=== PATIENT | male | born 1985 | race Caucasian/White ===

== ENCOUNTER 2019-02-25 20:11 | Emergency (ER) | payer SELFPAY ==
[2019-02-25 20:12] VITALS: BP 152/85; PULSE 71; RESP 14; TEMP 36.9; O2SAT 98; BMI 27.1
--- NOTE | 2019-02-25 20:17 | ED.RN ---
RN CALLED FOR EKG, PULLED OLD EKG FOR
--- NOTE | 2019-02-25 20:56 | EKG12_ITS ---
Test Reason : CP Blood Pressure : / mmHG Vent. Rate : 058 BPM Atrial Rate : 058 BPM P-R Int : 130 ms QRS Dur : 104 ms QT Int : 420 ms P-R-T Axes : 083 074 064 degrees QTc Int : 412 ms Sinus bradycardia Otherwise normal ECG Confirmed by RIAN DAMON, GLORIA ([id number]), metropolitan editor MANA PARIKH ([id number]) on 03/01/2019 1:36:39 PM Referred By: Confirmed By:GLORIA MODI MD
[2019-02-25 21:05] VITALS: O2SAT 96
[2019-02-25 21:07] LABS: Absolute Lymphocyte Count 2.09 X10^3/ul (0.83-4.51); Absolute Neutrophil Count 9.2 X10^3/uL (2.0-7.7); Basophil# 0.03 X10^3/uL; Basophil% 0.2 % (0-1); Eosinophil# 0.25 X10^3/uL; Hematocrit 47.1 % (40-54); Hemoglobin 16.3 g/dl (13.0-16.5); Lymphocyte # 2.09 X10^3/ul (4.0); Lymphocyte % 16.3 % (19-41); Mean Corp Hgb Conc 34.6 g/gl (32-36); Mean Corpuscular Hgb 30.6 pg (27.0-32.0); Mean Corpuscular Volume 88.4 fL (80-94); Mean Platelet Vol. 9.7 fl (6.2-12.0); Monocyte# 1.19 X10^3/uL; Monocyte% 9.3 % (0-10); Neutrophil # 9.24 X10^3/uL (2.7-7.7); POSITIVE COUNT NO; POSITIVE DIFFERENTIAL NO; POSITIVE MORPHOLOGY NO; Platelet Count 308 K/mm3 (150-450); RBC Distribution Width CV 12.5 % (11.6-14.6); RBC Distribution Width SD 40.7 fl (35.1-43.9); Red Blood Count 5.33 M/mm3 (4.6-6.2); White Blood Count 12.8 K/mm3 (4.4-11.0)
[2019-02-25] MEDS: Aspirin 81 MG TAB.CHEW 324 MG PO (21:10)
[2019-02-25 21:16] LABS: Anion Gap 4 (5-15); BUN 11 mg/dL (7-18); BUN/Creat Ratio 10.5 RATIO (10-20); Calcium,Total 9.3 mg/dL (8.5-10.1); Chloride 106 mmol/L (98-107); Creatinine, Serum 1.05 mg/dL (0.70-1.30); EST Glomerular Filtration Rate 86 mL/min (>60); Est Glom Filt Rate - Afr Amer 104 mL/min (>60); Estimated Creatinine Clearance 105.58 ml/min; Glucose 100 mg/dL (74-106); Potassium 3.6 mmol/L (3.5-5.1); Sodium Level 139 mmol/L (136-145)
--- NOTE | 2019-02-25 22:10 | RAD_ITS ---
STUDY: X-RAY CHEST REASON FOR EXAM: Male, 33 years old. Chest pain/epigastric pain TECHNIQUE: Single AP portable view of the chest. COMPARISON: None. FINDINGS: lead recoverer leads are present. The lungs are clear and expanded. There is no demonstrated pleural abnormality. Normal size heart. Normal mediastinum and carole. Normal visualized pulmonary arteries. Normal visualized aortic arch and descending thoracic aorta. Normal visualized thoracic spine. Normal visualized ribs, clavicles, and shoulders. There is no demonstrated abnormality of the visualized soft tissue structures of the upper abdomen. RAD/Chest 1 View (Portable) IMPRESSION: Normal x-ray examination of the chest. Electronically Signed: Malcolm Collado MD at 22:30 EDT , Service support ,
--- NOTE | 2019-02-25 23:49 | ED.VISSUMM ---
- ER Visit Summary Date of Service: 02/25/19 Chief Complaint: Chest pain History of Present Illness: The patient is a 33 M who presents with chest pain that began today. While he was at work. Patient states the pain is been constant. Patient describes the pain is sharp. Patient states the pain is over the left substernal area. Patient states nothing seems to make the pain worse. Patient states the pain improved slightly with drinking water. Patient admits to some diaphoresis. Patient also admits to some acid reflux. Patient denies any shortness of breath. Patient denies any nausea or vomiting. Patient is a smoker. Patient denies any other cardiac or PE risk factors. Physical Examination: Vital signs are stable. Patient is afebrile. Patient is in no acute distress. Oral mucosa is pink and moist. Neck is supple. Trachea is midline. There is no JVD noted. Heart was regular rate and rhythm. Lungs are clear and equal bilateral. Abdomen is soft. Bowel sounds are normal. There is no tenderness. There is no guarding noted. Skin is warm dry. Cranial nerves II through XII are intact. There are no focal motor or sensory deficits noted. The remaining physical exam is within normal limits. Test Results: EKG showed normal sinus rhythm with a rate of 58. There are no acute ST or T wave changes. This was unchanged compared to previous EKG dated 01/21/2002. Portable chest x-ray was obtained. There is no acute cardiopulmonary process. CBC shows slight leukocytosis of 12.8. Basic metabolic profile was normal. Troponin was normal. Emergency Department Course and Treatment: Patient was given aspirin here. Patient felt better on reevaluation. Patient has a HEART score of 2 and a LES score of 1. Patient was advised that this is low risk for acute cardiac event. Patient was given a referral to Dr. Espinoza Jones for follow-up with a primary care physician in 5 to 7 days. Patient understood and was agreeable with the plan. All questions were answered. Disposition: Discharge home Impression: Chest pain This note was generated with [employer] dictation software. It may contain incorrect words, spelling, and punctuation that were not noted in review of the chart prior to signing ED Disposition - Plan for ED Patient: Disposition: Home or Assisted Living Diagnosis: Chest pain of uncertain etiology Instructions: CHEST PAIN, Uncertain Cause Referrals: Care Physician,No Primary [Primary Care Provider] - Espinoza Jones DO [STAFF PHYSICIAN] - 5-7 Days
[2019-02-26 00:05] VITALS: BP 123/78; PULSE 68; RESP 17; O2SAT 97
--- NOTE | 2019-02-26 00:06 | ED.RN ---
PT GIVEN WRITTEN AND VERBAL DISCHARGE INSTRUCTIONS. PT VERBALIZES UNDERSTANDING AND DENIES ANY FURTHER QUESTIONS. PT IV D/C AND COVERED WITH 2X2 GAUZE AND PAPER TAPE. PT DRESSES SELF AND AMBULATES OUT OF DEPT WITH FAMILY.
== END 2019-02-26 00:07 | disposition home or self-care (01) ==
PROVIDERS: Emergency Provider Emergency Medicine
DX: R07.9 Chest pain, unspecified (principal); F17.200 Nicotine dependence, unspecified, uncomplicated
CPT/HCPCS: 36415; 71045; 80048; 84484; 85025; 93005; 99285; A4216

== ENCOUNTER 2021-12-15 14:46 | Inpatient (IN) | payer OTHER, SELFPAY ==
[2021-12-15] VITALS (8 sets, daily range): BP systolic 103–136; BP diastolic 52–83; PULSE 52–92; RESP 11–18; TEMP 36.7–36.8; O2SAT 95–99; BMI 27.4; BMI 27.1
--- NOTE | 2021-12-15 15:04 | RAD_ITS ---
STUDY: X-RAY CHEST REASON FOR EXAM: Male, 36 years old. chest pain since yesterday, smoker TECHNIQUE: AP COMPARISON: 02/25/2019 FINDINGS: Large pneumothorax in the left apex (as well as along the left lateral lung base) with compression of the left upper lung around the left hilum. No tracheal deviation. There is no demonstrated pleural abnormality. Normal size heart. Normal mediastinum and carole. Normal visualized pulmonary arteries. Normal visualized aortic arch and descending thoracic aorta. No acute bony process. There is no demonstrated abnormality of the visualized soft tissue structures of the upper abdomen. RAD/Chest 1 View (Portable) IMPRESSION: Large left pneumothorax. No tracheal deviation. Electronically Signed: Kevin Russell MD (Brooks) at 15:53 EDT ,
--- NOTE | 2021-12-15 15:04 | EKG12_ITS ---
Test Reason : CHEST PAIN Blood Pressure : / mmHG Vent. Rate : 074 BPM Atrial Rate : 074 BPM P-R Int : 124 ms QRS Dur : 096 ms QT Int : 386 ms P-R-T Axes : 079 075 067 degrees QTc Int : 428 ms Normal sinus rhythm Right atrial enlargement Borderline ECG Confirmed by RIAN DAMON, GLORIA ([id number]), editor greeting card MANA PARIKH ([id number]) on 12/18/2021 9:24:00 AM Referred By: CHIVO Confirmed By:GLORIA MODI MD
--- NOTE | 2021-12-15 15:06 | EDS_ITS ---
HPI History of Present Illness Chief Complaint: Chest Pain Informant: patient Onset/Context/Timing Onset: Yesterday Activity at onset: gradual Timing: Waxes and wanes Quality: Positive for Pressure and Sharp Location: Left Parasternal Current Severity: Mild Maximum Severity: Moderate Narrative Narrative: Patient present secondary left-sided chest pain with mild shortness of breath. Patient states he awoke with symptoms yesterday. Has had similar episodes in the past and in high school was diagnosed with pericarditis. He states typically he will take some Aleve and it goes away in a few hours. This particular episode lasted all day yesterday. It is improved today but not completely resolved. He believes it is slightly better when he leans forward but was able to lay down to sleep last night without difficulty. No fever or chills. Prior Similar Symptoms: Yes PFSH PFSH Medical History Pericarditis Home Medications NK 02/25/19 [History Last Taken Unknown] Allergy/AdvReac Type Severity Reaction Status Date / Time No Known Allergies Allergy Verified 12/15/21 14:47 Family History (Updated 12/15/21 @ 20:[address] Giovani Thomson MD) Other Diabetes Hypertension Social History Smoking Status: Current every day smoker tobacco type: cigarettes ROS ROS ED Constitutional Constitutional ED: Denies chills or fever(s) Eyes Eyes: Denies change in vision ENT ENT ED: Denies sore throat Cardiovascular Cardiovascular: Reports chest pain Respiratory/Chest Respiratory/Chest: Reports dyspnea; Denies cough Gastrointestinal Gastrointestinal: Denies abdominal pain, diarrhea, nausea or vomiting Genitourinary Genitourinary ED: Denies dysuria Musculoskeletal Musculoskeletal: Denies back pain or neck pain Integumentary Denies rash Neurologic Neurologic: Denies headache(s) or weakness Allergic/Immunologic Allergic/Immunologic ED: Denies urticaria EXAM Physical Exam Const Vital Signs: 12/15/21 14:48 12/15/21 14:52 12/15/21 16:11 Temperature 98.3 F Temperature Source Temporal Pulse Rate 92 69 Respiratory Rate 16 17 Respiratory Effort Normal Blood Pressure 136/83 H 123/75 H Blood Pressure Mean 100 91 Pulse Ox 95 96 Oxygen Delivery Method Room Air Nasal Cannula Oxygen Flow Rate (L/min) 4 12/15/21 17:42 12/15/21 18:29 12/15/21 19:30 Temperature Temperature Source Pulse Rate 76 52 L 58 L Respiratory Rate 11 L 11 L 16 Respiratory Effort Blood Pressure 129/75 H 103/52 L 119/76 Blood Pressure Mean 93 69 90 Pulse Ox 99 99 98 Oxygen Delivery Method Nasal Cannula Nasal Cannula Room Air Oxygen Flow Rate (L/min) 2 2 Positive well nourished and well developed General Appearance ED: well developed HEENT normocephalic and atraumatic Eyes PERRL and EOMs intact bilaterally Neck supple Chest Wall inspection of chest normal and palpation of chest normal Resp normal respiratory effort Effort and Inspection: respiratory distress Cardio regular rate and regular rhythm Rate: other Other Details: No appreciable rub noted on auscultation. GI normal to inspection, nondistended, normoactive bowel sounds and soft to palpation Extremity normal to inspection Neuro oriented x3 Sensorium / Orientation: awake and alert Psych mental status grossly normal Skin no rashes or lesions noted MDM MDM MDM Narrative Medical decision making narrative: EKG, chest x-ray, lab work obtained. Lab Data Attestation: I reviewed the patient's lab results. Labs: Laboratory Results - last 24 hr 12/15/21 12/15/21 12/15/21 15:45 15:45 15:45 WBC 9.8 RBC 5.73 Hgb 17.4 H Hct 51.2 MCV 89.4 MCH 30.4 MCHC 34.0 RDW Std Deviation 40.7 RDW Coeff of Arpan 12.3 Plt Count 362 MPV 8.8 Immature Gran % (Auto) 0.200 Neut % (Auto) 58.2 Lymph % (Auto) 27.4 Logan % (Auto) 9.0 Eos % (Auto) 4.4 Baso % (Auto) 0.8 Absolute Neuts (auto) 5.7 Absolute Lymphs (auto) 2.67 Nucleated RBC % 0 ESR 10 D-Dimer Quant (PE/DVT) < 0.27 L Sodium 139 Potassium 4.2 Chloride 110 H Carbon Dioxide 26.0 Anion Gap 3 L BUN 11 Creatinine 0.93 Estim Creat Clear Calc 115.83 Est GFR (MDRD) Af Amer 117 Est GFR (MDRD) Non-Af 97 BUN/Creatinine Ratio 11.8 Glucose 100 Calcium 9.1 Troponin I High Sens < 3 L C-React Prot Ext Range < 2.90 Radiography Chest X-Ray - ED: 1 View, Read by ED Physician and - (Left-sided pneumothorax) Diagnostic Testing: Clinical Impression(s) from Imaging Studies Chest X-Ray 12/15/21 15:04 IMPRESSION: Large left pneumothorax. No tracheal deviation. Electronically Signed: Kevin Russell MD (Brooks) at 15:53 EDT , Chest X-Ray 12/15/21 17:35 IMPRESSION: Left chest tube. Slight residual left apical pneumothorax. Electronically Signed: Kevin Russell MD (Brooks) at 18:02 EDT , EKG Initial EKG: Attestation: I personally reviewed and interpreted this EKG as follows: Interpretation: Sinus Rhythm (Sinus at 74 with no acute ischemia.) Treatment and Re-Evaluation Narrative: I was notified by director of radiology that they believe there was a left- sided pneumothorax. I immediately went and reviewed the x-ray. He does have a rather large left-sided pneumothorax. Mediastinum is midline. He was placed on nasal cannula oxygen. I did discuss chest tube placement with the patient. He gives consent. In the meantime lab work returns and is unremarkable. Patient is given 4 of morphine and 4 of Zofran. Patient is prepped and draped. Pigtail catheter was placed in the left chest without difficulty. This is hooked up to suction. Repeat chest x-ray shows nearly full reexpansion of the left lung. Patient's O2 sat is 98 to 100%. I spoke with pulmonary who will follow along with the patient to manage the chest tube. I will speak with hospitalist regarding admission. Discharge Plan Dx/Rx/DC Orders Clinical Impression: Spontaneous pneumothorax Disposition Disposition: Acute Care Hospital [facility] Discharge Date/Time: 12/15/21 20:04
[2021-12-15 15:55] LABS: Absolute Lymphocyte Count 2.67 X10^3/uL (0.83-4.51); Absolute Neutrophil Count 5.7 X10^3/uL (2.0-7.7); Basophil# 0.08 X10^3/uL; Basophil% 0.8 % (0-1); Eosinophil# 0.43 X10^3/uL; Eosinophils% 4.4 % (0-5); Hematocrit 51.2 % (40-54); Hemoglobin 17.4 g/dL (13.0-16.5); Lymphocyte # 2.67 X10^3/ul (0.83-4.51); Lymphocyte % 27.4 % (19-41); Mean Corpuscular Hgb 30.4 pg (27.0-32.0); Mean Corpuscular Volume 89.4 fL (80-94); Mean Platelet Vol. 8.8 fl (6.2-12.0); Monocyte# 0.88 X10^3/uL; NRBC Flagged by Analyzer 0 % (0-5); Neutrophil # 5.68 X10^3/uL (2.7-7.7); Neutrophil % 58.2 % (47-70); Platelet Count 362 K/mm3 (150-450); RBC Distribution Width CV 12.3 % (11.6-14.6); RBC Distribution Width SD 40.7 fl (35.1-43.9); Red Blood Count 5.73 M/mm3 (4.6-6.2); White Blood Count 9.8 K/mm3 (4.4-11.0)
[2021-12-15] MEDS: Morphine 4 MG/ML Syringe IV (16:13)
[2021-12-15] MEDS: Ondansetron 4 MG/2 ML Vial IV (16:13)
[2021-12-15 16:17] LABS: Anion Gap 3 (5-15); BUN 11 mg/dL (7-18); BUN/Creat Ratio 11.8 RATIO (10-20); CRP < 2.90 mg/L (0.0-3.0); Calcium,Total 9.1 mg/dL (8.5-10.1); Chloride 110 mmol/L (98-107); Creatinine, Serum 0.93 mg/dL (0.70-1.30); EST Glomerular Filtration Rate 97 mL/min (>60); Est Glom Filt Rate - Afr Amer 117 mL/min (>60); Estimated Creatinine Clearance 115.83 ml/min; Glucose 100 mg/dL (74-106); Potassium 4.2 mmol/L (3.5-5.1); Sodium Level 139 mmol/L (136-145); Troponin-I HS < 3 pg/mL (3.0-78.0)
[2021-12-15 16:21] LABS: D-Dimer Quantitative (DVT/PE) < 0.27 FEU/ug/m (0.27-0.49); Erythrocyte Sedimentation Rate 10 mm/hr (0-20)
--- NOTE | 2021-12-15 17:24 | ED.RN ---
1724 CHEST TUBE PROCEDURE BY MD SCOTT, PRE PROCEDURAL VS ARE FOLLOWS 128/87 68HR 98% 4L 11RR. POST PROCEDURAL 129/75 60HR 100% 2L 11RR
--- NOTE | 2021-12-15 17:35 | RAD_ITS ---
STUDY: X-RAY CHEST REASON FOR EXAM: Male, 36 years old. Chest tube placement TECHNIQUE: AP COMPARISON: Earlier today FINDINGS: Left chest tube is seen along the lateral left upper lung field. Near complete reexpansion of the left lung. Slight left apical pneumothorax with pleural separation measuring 3.5 mm. Normal size heart. Normal mediastinum and carole. Normal visualized pulmonary arteries. Normal visualized aortic arch and descending thoracic aorta. Normal visualized thoracic spine. Normal visualized ribs, clavicles, and shoulders. There is no demonstrated abnormality of the visualized soft tissue structures of the upper abdomen. RAD/Chest 1 View (Portable) IMPRESSION: Left chest tube. Slight residual left apical pneumothorax. Electronically Signed: Kevin Russell MD (Brooks) at 18:02 EDT ,
--- NOTE | 2021-12-15 19:04 | CM.ED ---
SW Note Referral Source: Case Find Referral Reason: No Primary Care Physician (PCP) and no insurance SW reviewed chart and noted that patient has no PCP and no insurance SW provided patient with list of [facility] and [facility] Physician List for reference as well as financial aide packet. Financial aide packet includes [place] Medicaid application an also information about [facility]. No other issues or concerns voiced at this time. SW remains available for any additional needs. Plan: Provided patient with PCP information Tova DILLON
--- NOTE | 2021-12-15 20:25 | HP.PCM.HOS_ITS ---
HPI - General General Date of Admission: 12/15/21 HPI Narrative ARNOLD MEDELLIN, is a 36 M who presents to the hospital with chest pain and shortness of breath. He says that he woke up with the symptoms yesterday but thought that it was just his typical chest pain he says he has had when he had an episode of pericarditis in high school he will sometimes take Aleve and will go away however this episode did not. He presented to the hospital and chest x- ray demonstrated a left pneumothorax. This has resolved with placement of a chest tube. Denies any trauma to his chest. [facility] Medical History Pericarditis Home Medications NK 02/25/19 [History Last Taken Unknown] Allergy/AdvReac Type Severity Reaction Status Date / Time No Known Allergies Allergy Verified 12/15/21 14:47 Family History (Updated 12/15/21 @ 20:[address] Giovani Thomson MD) Other Diabetes Hypertension no surgical history Social History Smoking Status: Current every day smoker tobacco type: cigarettes ROS Constitutional Constitutional: Denies chills, fatigue, fever(s) or malaise Eyes Eyes: Denies blurry vision ENT HEENT: Denies headache(s) or nasal discharge Cardiovascular Cardiovascular: Reports chest pain; Denies dyspnea on exertion or syncope Respiratory/Chest Respiratory/Chest: Reports shortness of breath at rest; Denies cough or shortness of breath with exertion Gastrointestinal Gastrointestinal: Denies constipation, diarrhea, nausea or vomiting Genitourinary Genitourinary: Denies dysuria Neurologic Neurologic: Denies focal weakness, numbness or tremor(s) Psychiatric Psychiatric: Denies anxiety or depression Vital Signs Vital Signs Vital Signs: 12/15/21 14:48 12/15/21 14:52 12/15/21 16:11 Temperature 98.3 F Temperature Source Temporal Pulse Rate 92 69 Respiratory Rate 16 17 Respiratory Effort Normal Blood Pressure 136/83 H 123/75 H Blood Pressure Mean 100 91 Blood Pressure Source Blood Pressure Position Blood Pressure Location Pulse Ox 95 96 Oxygen Delivery Method Room Air Nasal Cannula Oxygen Flow Rate (L/min) 4 12/15/21 17:42 12/15/21 18:29 12/15/21 19:30 Temperature Temperature Source Pulse Rate 76 52 L 58 L Respiratory Rate 11 L 11 L 16 Respiratory Effort Blood Pressure 129/75 H 103/52 L 119/76 Blood Pressure Mean 93 69 90 Blood Pressure Source Blood Pressure Position Blood Pressure Location Pulse Ox 99 99 98 Oxygen Delivery Method Nasal Cannula Nasal Cannula Room Air Oxygen Flow Rate (L/min) 2 2 12/15/21 19:34 12/15/21 20:23 Temperature 98.3 F 98.1 F Temperature Source Oral Oral Pulse Rate 67 63 Respiratory Rate 18 12 Respiratory Effort Blood Pressure 119/76 113/69 Blood Pressure Mean 90 83 Blood Pressure Source Monitor Blood Pressure Position Sitting Blood Pressure Location Right Arm Pulse Ox 99 99 Oxygen Delivery Method Nasal Cannula Nasal Cannula Oxygen Flow Rate (L/min) 2 3 Weight Weight: 194 lb 10.691 oz Body Mass Index (BMI) 27.1 Physical Exam Const alert and oriented x3 General Appearance: cooperative HEENT normocephalic and moist oral mucous membranes Eyes PERRL, EOMs intact bilaterally and conjunctivae normal Neck supple and no JVD Resp normal respiratory effort, no retractions, no use of accessory muscles and clear to auscultation bilaterally Auscultation: Negative for crackles, rales, rhonchi or wheezes Cardio regular rate, regular rhythm, S1 normal heart sound, S2 normal heart sound and no murmurs GI soft to palpation, non-tender and non-distended; Negative for hepatosplenomegaly Extremity no clubbing, cyanosis or edema Skin no rashes or lesions noted Neuro no focal motor deficits and no sensory deficits noted Psych affect normal Appearance: appropriate Results Lab / Micro Data Result Diagrams: 12/15/21 15:45 12/15/21 15:45 Labs: Laboratory Results - last 24 hr 12/15/21 15:45: WBC 9.8, RBC 5.73, Hgb 17.4 H, Hct 51.2, MCV 89.4, MCH 30.4, MCHC 34.0, RDW Std Deviation 40.7, RDW Coeff of Arpan 12.3, Plt Count 362, MPV 8.8, Immature Gran % (Auto) 0.200, Neut % (Auto) 58.2, Lymph % (Auto) 27.4, O[place]e % (Auto) 9.0, Eos % (Auto) 4.4, Baso % (Auto) 0.8, Absolute Neuts (auto) 5.7, Absolute Lymphs (auto) 2.67, Nucleated RBC % 0, ESR 10 12/15/21 15:45: D-Dimer Quant (PE/DVT) < 0.27 L 12/15/21 15:45: Sodium 139, Potassium 4.2, Chloride 110 H, Carbon Dioxide 26.0, Anion Gap 3 L, BUN 11, Creatinine 0.93, Estim Creat Clear Calc 115.83, Est GFR (MDRD) Af Amer 117, Est GFR (MDRD) Non-Af 97, BUN/Creatinine Ratio 11.8, Glucose 100, Calcium 9.1, Troponin I High Sens < 3 L, C-React Prot Ext Range < 2.90 Radiology Impression Chest X-Ray 12/15/21 15:04 IMPRESSION: Large left pneumothorax. No tracheal deviation. Electronically Signed: Kevin Russell MD (Brooks) at 15:53 EDT , Chest X-Ray 12/15/21 17:35 IMPRESSION: Left chest tube. Slight residual left apical pneumothorax. Electronically Signed: Kevin Russell MD (Brooks) at 18:02 EDT , Assessment & Plan Assessment/Plan (1) Spontaneous pneumothorax: PLAN: 1. Spontaneous pneumothorax on the left ? Pneumothorax is resolved with placement of chest tube ? Consult pulmonology for management ? Continue with low intermittent wall suction ? He denies a family history pneumothoraces DVT: Ambulation Charges/Coding Visit Charges Inpatient E&M: 49661 Init Hosp L2
[2021-12-16 04:02] VITALS: BP 102/61; PULSE 57; RESP 18; TEMP 36.4; O2SAT 98
--- NOTE | 2021-12-16 05:56 | EX.PCM.CONCC ---
Assessment & Plan Assessment/Plan (1) Spontaneous pneumothorax: PLAN: RECOMMENDATIONS: 1. Obtain repeat chest x-ray this morning. 2. If no pneumothorax was noted on chest imaging this morning, place chest tube to waterseal. 3. If the chest tube was placed to waterseal, a follow-up chest x-ray will be obtained with the possibility of chest tube removal. IMPRESSIONS: 1. Spontaneous pneumothorax The patient initially presented to the hospital with chest discomfort and shortness of breath. He has no known history of any primary pneumothoraces, nor has he ever been diagnosed with any pulmonary parenchymal lung abnormality. He does have a smoking history. It is certainly plausible that the patient may have some small subpleural blebs not evident on plain film chest x-ray which may have led to his pneumothorax in the setting of a coughing fit. Nevertheless, the patient's pneumothorax has nearly completely resolved status post pigtail chest tube placement. Recommend obtaining a follow-up chest x-ray this morning. If there is no significant pneumothorax, the patient's chest tube will be placed to waterseal in preparation for potential removal. 2. Chronic tobacco dependency I personally spent 3 minutes discussing the deleterious effects of continued tobacco use with the patient, including modalities which could utilize to achieve a smoke-free lifestyle. Nicotine replacement therapy can be utilized while the patient is admitted to the hospital. This note was generated with [employer] dictation software. It may contain incorrect words, spelling, and punctuation that were not noted in checking the note before signing. HPI Consult Data Date of Consult: 12/16/21 HPI Narrative Reason for Consultation: Spontaneous pneumothorax HPI Narrative: The patient is a 36-year-old male, with a history as outlined below, who presented to the emergency department on December 15 with shortness of breath and left-sided chest discomfort after awakening from sleep. The patient does have an approximate [id number] smoking history and continues to smoke 1 pack of cigarettes per day. He denies any prior history of a pneumothorax. The patient denies any recent trauma. He has never been diagnosed with any parenchymal lung disease. The patient did report experiencing a coughing fit when he awoke from sleep yesterday as well. On presentation to the emergency department, the patient was noted to be afebrile and hemodynamically stable. Initial CBC with differential was unremarkable. D-dimer was negative. Chemistry profile was unremarkable. Initial chest x-ray demonstrated a large left-sided pneumothorax. A pigtail catheter was placed in the emergency department with improvement in the patient's pneumothorax. He was subsequently admitted to the medical surgical floor for further management. [facility] Medical History Pericarditis Home Medications NK 02/25/19 [History Last Taken Unknown] Allergy/AdvReac Type Severity Reaction Status Date / Time No Known Allergies Allergy Verified 12/15/21 14:47 Family History (Updated 12/15/21 @ 20:[address] Giovani Thomson MD) Other Diabetes Hypertension Surgical History no surgical history Social History Smoking Status: Current every day smoker tobacco type: cigarettes ROS Constitutional Constitutional: Denies chills, fatigue or fever(s) Eyes Eyes: Denies blurry vision or change in vision ENT HEENT: Denies dizziness, headache(s) or hoarseness Cardiovascular Cardiovascular: Reports chest pain and dyspnea Respiratory/Chest Respiratory/Chest: Reports dyspnea Gastrointestinal Gastrointestinal: Denies abdominal pain, diarrhea, nausea or vomiting Genitourinary Genitourinary: Denies difficulty urinating Musculoskeletal Musculoskeletal: Denies arthralgias, back pain or joint pain Integumentary Integumentary: Denies lesions, rash or skin ulcer Neurologic Neurologic: Denies abnormal gait or abnormal speech Psychiatric Psychiatric: Denies anxiety, depression or hallucinations Endocrine Endocrinology: Denies fatigue, polydipsia or polyuria Hematologic/Lymphatic Hematologic/Lymphatic: Denies easy bleeding or easy bruising Physical Exam Const alert, oriented x3 and no apparent distress General Appearance: cooperative HEENT normocephalic, head/scalp atraumatic and moist oral mucous membranes Eyes PERRL, EOMs intact bilaterally and conjunctivae normal Neck supple General: trachea midline Chest Chest Narrative: No air leak noted in the Pleur-evac. Chest: chest tube Resp normal respiratory effort Auscultation: Negative for rales, rhonchi or wheezes Cardio S1 normal heart sound and S2 normal heart sound Rate: bradycardia GI normal to inspection, nondistended, normoactive bowel sounds Extremity no clubbing, cyanosis or edema Skin no rashes or lesions noted Neuro CN's II-XII intact bilaterally, moves all extremities and no focal motor deficits Psych cooperative and affect normal Lab / Micro Data Result Diagrams: 12/16/21 05:25 12/16/21 05:25 Labs: Laboratory Results - last 24 hr 12/15/21 15:45: WBC 9.8, RBC 5.73, Hgb 17.4 H, Hct 51.2, MCV 89.4, MCH 30.4, MCHC 34.0, RDW Std Deviation 40.7, RDW Coeff of Arpan 12.3, Plt Count 362, MPV 8.8, Immature Gran % (Auto) 0.200, Neut % (Auto) 58.2, Lymph % (Auto) 27.4, [place] % (Auto) 9.0, Eos % (Auto) 4.4, Baso % (Auto) 0.8, Absolute Neuts (auto) 5.7, Absolute Lymphs (auto) 2.67, Nucleated RBC % 0, ESR 10 12/15/21 15:45: D-Dimer Quant (PE/DVT) < 0.27 L 12/15/21 15:45: Sodium 139, Potassium 4.2, Chloride 110 H, Carbon Dioxide 26.0, Anion Gap 3 L, BUN 11, Creatinine 0.93, Estim Creat Clear Calc 115.83, Est GFR (MDRD) Af Amer 117, Est GFR (MDRD) Non-Af 97, BUN/Creatinine Ratio 11.8, Glucose 100, Calcium 9.1, Troponin I High Sens < 3 L, C-React Prot Ext Range < 2.90 Radiology Impression Chest X-Ray 12/15/21 15:04 IMPRESSION: Large left pneumothorax. No tracheal deviation. Electronically Signed: Kevin Russell MD (Brooks) at 15:53 EDT , Chest X-Ray 12/15/21 17:35 IMPRESSION: Left chest tube. Slight residual left apical pneumothorax. Electronically Signed: Kevin Russell MD (Brooks) at 18:02 EDT , Charges/Coding Visit Charges Inpatient E&M: 77516 Init Hosp L3 Behavior Interventions Behavior Intervention: 74241 Smoking Cessation 3-10 min
--- NOTE | 2021-12-16 06:10 | RAD_ITS ---
STUDY: X-RAY CHEST REASON FOR EXAM: Male, 36 years old. PTX follow up TECHNIQUE: 2 frontal views of the chest. COMPARISON: Chest radiographs of 12/15/2021 and 02/25/2019.. FINDINGS: Small-caliber left chest tube remains in place along the lateral aspect of the left midlung. The previously noted left-sided pneumothorax is no longer visualized, but there could be a tiny residual pneumothorax at the apex, which is obscured by overlying rib shadows. The lungs are clear. No pleural effusion. Normal size heart. Normal mediastinum and carole. Normal visualized pulmonary arteries. Normal visualized aortic arch and descending thoracic aorta. Normal visualized thoracic spine. Normal visualized ribs, clavicles, and shoulders. There is no demonstrated abnormality of the visualized soft tissue structures of the upper abdomen. RAD/Chest 1 View (Portable) IMPRESSION: Left chest tube remain in place. Left-sided pneumothorax is no longer visualized. Electronically Signed: Smith Logan MD at 7:20 EDT ,
[2021-12-16 06:16] LABS: Absolute Lymphocyte Count 3.05 X10^3/uL (0.83-4.51); Absolute Neutrophil Count 6.2 X10^3/uL (2.0-7.7); Basophil# 0.08 X10^3/uL; Basophil% 0.7 % (0-1); Eosinophil# 0.57 X10^3/uL; Eosinophils% 5.2 % (0-5); Hematocrit 50.3 % (40-54); Hemoglobin 16.4 g/dL (13.0-16.5); Lymphocyte # 3.05 X10^3/ul (0.83-4.51); Lymphocyte % 27.9 % (19-41); Mean Corp Hgb Conc 32.6 g/dL (32-36); Mean Platelet Vol. 9.4 fl (6.2-12.0); Monocyte# 1.02 X10^3/uL; Monocyte% 9.3 % (0-10); NRBC Flagged by Analyzer 0 % (0-5); Neutrophil # 6.19 X10^3/uL (2.7-7.7); Neutrophil % 56.7 % (47-70); Platelet Count 335 K/mm3 (150-450); RBC Distribution Width CV 12.2 % (11.6-14.6); RBC Distribution Width SD 41.7 fl (35.1-43.9); Red Blood Count 5.47 M/mm3 (4.6-6.2); White Blood Count 10.9 K/mm3 (4.4-11.0)
[2021-12-16 06:46] LABS: Anion Gap 3 (5-15); BUN 11 mg/dL (7-18); BUN/Creat Ratio 12.1 RATIO (10-20); Calcium,Total 8.7 mg/dL (8.5-10.1); Chloride 107 mmol/L (98-107); Creatinine, Serum 0.91 mg/dL (0.70-1.30); EST Glomerular Filtration Rate 100 mL/min (>60); Est Glom Filt Rate - Afr Amer 121 mL/min (>60); Estimated Creatinine Clearance 118.37 ml/min; Glucose 85 mg/dL (74-106); Sodium Level 139 mmol/L (136-145)
--- NOTE | 2021-12-16 06:58 | NURSING ---
per Dr Bradshaw. He changed the chest tube to a water seal. If pt reports chest pain, hook chest tube back up to suction.
--- NOTE | 2021-12-16 07:25 | PCM.PN.HOSP ---
Subjective Subjective Patient is a 36-year-old gentleman who presented with left-sided chest pain and shortness of breath of few days duration. Imaging studies obtained in the ED did reveal Large pneumothorax in the left apex (as well as along the left lateral lung base) with compression of the left upper lung around the left hilum. Chest tube was placed patient admitted to regular nursing floor for further management Objective Data Objective Data Vital Signs: Vital Signs Temp Pulse Resp BP Pulse Ox 97.6 F L 57 L 18 102/61 98 12/16/21 04:02 12/16/21 04:02 12/16/21 04:02 12/16/21 04:02 12/16/21 04:02 Oxygen Flow Rate (L/min) 3 Oxygen Delivery Method Room Air Weight: 88.3 kg Body Mass Index (BMI) 27.1 Lab / Micro Data Result Diagrams: 12/16/21 05:25 12/16/21 05:25 Labs: Laboratory Results - last 24 hr 12/15/21 15:45: WBC 9.8, RBC 5.73, Hgb 17.4 H, Hct 51.2, MCV 89.4, MCH 30.4, MCHC 34.0, RDW Std Deviation 40.7, RDW Coeff of Arpan 12.3, Plt Count 362, MPV 8.8, Immature Gran % (Auto) 0.200, Neut % (Auto) 58.2, Lymph % (Auto) 27.4, [place] % (Auto) 9.0, Eos % (Auto) 4.4, Baso % (Auto) 0.8, Absolute Neuts (auto) 5.7, Absolute Lymphs (auto) 2.67, Nucleated RBC % 0, ESR 10 12/15/21 15:45: D-Dimer Quant (PE/DVT) < 0.27 L 12/15/21 15:45: Sodium 139, Potassium 4.2, Chloride 110 H, Carbon Dioxide 26.0, Anion Gap 3 L, BUN 11, Creatinine 0.93, Estim Creat Clear Calc 115.83, Est GFR (MDRD) Af Amer 117, Est GFR (MDRD) Non-Af 97, BUN/Creatinine Ratio 11.8, Glucose 100, Calcium 9.1, Troponin I High Sens < 3 L, C-React Prot Ext Range < 2.90 12/16/21 05:25: WBC 10.9, RBC 5.47, Hgb 16.4, Hct 50.3, MCV 92.0, MCH 30.0, MCHC 32.6, RDW Std Deviation 41.7, RDW Coeff of Arpan 12.2, Plt Count 335, MPV 9.4, Immature Gran % (Auto) 0.200, Neut % (Auto) 56.7, Lymph % (Auto) 27.9, [place] % (Auto) 9.3, Eos % (Auto) 5.2 H, Baso % (Auto) 0.7, Absolute Neuts (auto) 6.2, Absolute Lymphs (auto) 3.05, Nucleated RBC % 0 12/16/21 05:25: Sodium 139, Potassium 5.0, Chloride 107, Carbon Dioxide 29.0, Anion Gap 3 L, BUN 11, Creatinine 0.91, Estim Creat Clear Calc 118.37, Est GFR (MDRD) Af Amer 121, Est GFR (MDRD) Non-Af 100, BUN/Creatinine Ratio 12.1, Glucose 85, Calcium 8.7 Radiography Diagnostic Testing: Radiology Impression Chest X-Ray 12/15/21 15:04 IMPRESSION: Large left pneumothorax. No tracheal deviation. Electronically Signed: Kevin Russell MD (Brooks) at 15:53 EDT , Chest X-Ray 12/15/21 17:35 IMPRESSION: Left chest tube. Slight residual left apical pneumothorax. Electronically Signed: Kevin Russell MD (Brooks) at 18:02 EDT , Chest X-Ray 12/16/21 06:10 IMPRESSION: Left chest tube remain in place. Left-sided pneumothorax is no longer visualized. Electronically Signed: Smith Logan MD at 7:20 EDT , Physical Exam Narrative GENERAL: cooperative HEENT: Atraumatic; EYES; Anicteric, Normal Conjunctiva NECK; supple, normal thyroid, RESPIRATORY: Diminished to auscultation CARDIOVASCULAR: Regular S1 S2, GI: soft, normoactive bowel sounds, : No Renal angle tenderness; EXTREMITIES: No edema, no clubbing, MUSCULOSKELETAL: no muscle wasting NEURO: Awake; no lateralizing signs. SKIN: No Rash PSYCH; Flat affect Assessment & Plan Assessment/Plan (1) Spontaneous pneumothorax: PLAN: Patient is a 36-year-old gentleman who presented with left-sided chest pain and shortness of breath of few days duration. Imaging studies obtained in the ED did reveal Large pneumothorax in the left apex (as well as along the left lateral lung base) with compression of the left upper lung around the left hilum. Chest tube was placed patient admitted to regular nursing floor for further management 1. Spontaneous pneumothorax on the left - Imaging studies obtained in the ED did reveal Large pneumothorax in the left apex (as well as along the left lateral lung base) with compression of the left upper lung around the left hilum. Chest tube was placed patient admitted to regular nursing floor for further management. Imaging studies repeated on the morning of 10/18/2021 demonstrated resolution of the pneumothorax. Pulmonary medicine on consult and recommendation is for patient chest tube to be placed to [facility] 2. Tobacco dependence - Counseled on cessation, offered nicotine patch for tobacco cravings 3. DVT prophylaxis ? Low risk, did encourage early ambulation Charges/Coding Visit Charges Inpatient E&M: 99100 Subs Hosp L2
--- NOTE | 2021-12-16 07:45 | RAD_ITS ---
STUDY: X-RAY CHEST REASON FOR EXAM: Male, 36 years old. CHEST PAIN fu PTX- chest tube to water seal TECHNIQUE: XR Chest 1 View COMPARISON: Study done earlier today. FINDINGS: There is a small left apical pneumothorax which is less than 5% in size. Small bore left chest tube in place. Normal size heart. Normal mediastinum and carole. Normal visualized pulmonary arteries. Normal visualized aortic arch and descending thoracic aorta. Normal visualized thoracic spine. Normal visualized ribs, clavicles, and shoulders. There is no demonstrated abnormality of the visualized soft tissue structures of the upper abdomen. RAD/Chest 1 View (Portable) IMPRESSION: There is a small left apical pneumothorax which is less than 5% in size. Small bore left chest tube in place Electronically Signed: Jacobo Bob MD at 8:43 EDT ,
[2021-12-16 09:29] VITALS: BP 108/76; PULSE 80; RESP 18; TEMP 36.7; O2SAT 97
--- NOTE | 2021-12-16 12:00 | RAD_ITS ---
STUDY: X-RAY CHEST REASON FOR EXAM: Male, 36 years old. PTX follow up TECHNIQUE: Single AP portable view of the chest. COMPARISON: 12/16/2021 FINDINGS: The lungs are clear and expanded. There is no demonstrated pleural abnormality. Normal size heart. Normal mediastinum and carole. Normal visualized pulmonary arteries. Normal visualized aortic arch and descending thoracic aorta. Normal visualized thoracic spine. Normal visualized ribs, clavicles, and shoulders. There is no demonstrated abnormality of the visualized soft tissue structures of the upper abdomen. RAD/Chest 1 View (Portable) IMPRESSION: No evidence of acute cardiopulmonary process. No evidence of residual pneumothorax. Electronically Signed: Jerel Bedoya DO at 12:14 EDT ,
[2021-12-16 14:57] VITALS: BP 112/80; PULSE 80; RESP 18; TEMP 36.4; O2SAT 97
--- NOTE | 2021-12-16 15:07 | PCM.DC.SUM ---
Providers Date of Admission: 12/15/21 Primary Care Physician: Saima Primary Care Phys Consultations 12/15/21 20:27 Consult: Anthropology Professor / Pulmonary Medicine Routine Consulting Provider: Pulmonary Medicine ashley Lozano Reason for Consult: Left pneumothorax EMERGENT Consult: No MD Notified: Yes Date Notified: 12/15/21 Time Notified: 19:32 Method of Notification: Verbal Reason For Visit: SPONTANEOUS PNEUMO Diagnosis Discharge Diagnosis (1) Spontaneous pneumothorax: Status: Acute Code(s): J93.83 - Other pneumothorax Medications at Discharge Home Medications NK 02/25/19 Hospital Course Summary of Care Provided Minutes Spent on Discharge: 35 Hospital Course: Patient is a 36-year-old gentleman who presented with left-sided chest pain and shortness of breath of few days duration. Imaging studies obtained in the ED did reveal Large pneumothorax in the left apex (as well as along the left lateral lung base) with compression of the left upper lung around the left hilum. Chest tube was placed patient admitted to regular nursing floor for further management 1. Spontaneous pneumothorax on the left - Imaging studies obtained in the ED did reveal Large pneumothorax in the left apex (as well as along the left lateral lung base) with compression of the left upper lung around the left hilum. Chest tube was placed patient admitted to regular nursing floor for further management. Imaging studies repeated on the morning of 10/18/2021 demonstrated resolution of the pneumothorax. Pulmonary medicine on consult and recommendation is for patient chest tube to be placed to waterseal - Repeat CXR showed complete resolution 2. Tobacco dependence - Counseled on cessation, offered nicotine patch for tobacco cravings 3. DVT prophylaxis ? Low risk, did encourage early ambulation Physical Exam Narrative GENERAL: cooperative HEENT: Atraumatic; EYES; Anicteric, Normal Conjunctiva NECK; supple, normal thyroid, RESPIRATORY: Diminished to auscultation CARDIOVASCULAR: Regular S1 S2, GI: soft, normoactive bowel sounds, : No Renal angle tenderness; EXTREMITIES: No edema, no clubbing, MUSCULOSKELETAL: no muscle wasting NEURO: Awake; no lateralizing signs. SKIN: No Rash PSYCH; Flat affect Weight / BMI Weight Weight: 88.3 kg Body Mass Index (BMI) 27.1 ABG / Lab / Microbiology Data Result Diagrams: 12/16/21 05:25 12/16/21 05:25 Laboratory: Laboratory Results - last 24 hr 12/15/21 15:45: WBC 9.8, RBC 5.73, Hgb 17.4 H, Hct 51.2, MCV 89.4, MCH 30.4, MCHC 34.0, RDW Std Deviation 40.7, RDW Coeff of Arpan 12.3, Plt Count 362, MPV 8.8, Immature Gran % (Auto) 0.200, Neut % (Auto) 58.2, Lymph % (Auto) 27.4, [place] % (Auto) 9.0, Eos % (Auto) 4.4, Baso % (Auto) 0.8, Absolute Neuts (auto) 5.7, Absolute Lymphs (auto) 2.67, Nucleated RBC % 0, ESR 10 12/15/21 15:45: D-Dimer Quant (PE/DVT) < 0.27 L 12/15/21 15:45: Sodium 139, Potassium 4.2, Chloride 110 H, Carbon Dioxide 26.0, Anion Gap 3 L, BUN 11, Creatinine 0.93, Estim Creat Clear Calc 115.83, Est GFR (MDRD) Af Amer 117, Est GFR (MDRD) Non-Af 97, BUN/Creatinine Ratio 11.8, Glucose 100, Calcium 9.1, Troponin I High Sens < 3 L, C-React Prot Ext Range < 2.90 12/16/21 05:25: WBC 10.9, RBC 5.47, Hgb 16.4, Hct 50.3, MCV 92.0, MCH 30.0, MCHC 32.6, RDW Std Deviation 41.7, RDW Coeff of Arpan 12.2, Plt Count 335, MPV 9.4, Immature Gran % (Auto) 0.200, Neut % (Auto) 56.7, Lymph % (Auto) 27.9, [place] % (Auto) 9.3, Eos % (Auto) 5.2 H, Baso % (Auto) 0.7, Absolute Neuts (auto) 6.2, Absolute Lymphs (auto) 3.05, Nucleated RBC % 0 12/16/21 05:25: Sodium 139, Potassium 5.0, Chloride 107, Carbon Dioxide 29.0, Anion Gap 3 L, BUN 11, Creatinine 0.91, Estim Creat Clear Calc 118.37, Est GFR (MDRD) Af Amer 121, Est GFR (MDRD) Non-Af 100, BUN/Creatinine Ratio 12.1, Glucose 85, Calcium 8.7 Radiography Diagnostic Testing: Radiology Impression Chest X-Ray 12/15/21 15:04 IMPRESSION: Large left pneumothorax. No tracheal deviation. Electronically Signed: Kevin Russell MD (Brooks) at 15:53 EDT , Chest X-Ray 12/15/21 17:35 IMPRESSION: Left chest tube. Slight residual left apical pneumothorax. Electronically Signed: Kevin Russell MD (Brooks) at 18:02 EDT , Chest X-Ray 12/16/21 06:10 IMPRESSION: Left chest tube remain in place. Left-sided pneumothorax is no longer visualized. Electronically Signed: Smith Logan MD at 7:20 EDT , Chest X-Ray 12/16/21 07:45 IMPRESSION: There is a small left apical pneumothorax which is less than 5% in size. Small bore left chest tube in place Electronically Signed: Jacobo Bob MD at 8:43 EDT , Chest X-Ray 12/16/21 12:00 IMPRESSION: No evidence of acute cardiopulmonary process. No evidence of residual pneumothorax. Electronically Signed: Jerel Bedoya DO at 12:14 EDT , D/C Instructions Discharge Diet: No restrictions Discharge Activity: Return to Normal Activity Call your doctor if you observe: Fever of 101 or Higher, Shortness of breath, Fainting spells and Chest pain Meaningful Use Info Meaningful Use Diagnoses (Choose all that apply): None applicable Discharge Plan Admission Admit Date/Time: 12/15/21 19:31 Attending Provider: Kulwinder Hurst Primary Care Provider: Care Physician,No Primary Consulting Providers: Dean Medina ; Thiago Bradshaw ; Yue Lorenzo RN NEONATAL Discharge Orders/Prescriptions Prescriptions: No Action NK RF: 0 Referrals / Follow Up: Thiago Bradshaw DO [STAFF PHYSICIAN] - Within 2 Weeks Care Physician,No Primary [Primary Care Provider] - Disposition Disposition (needs filled in before D/C Order can be placed): Home, Self Care Charges/Coding Visit Charges Inpatient E&M: 29965 Disch Hosp
== END 2021-12-16 15:47 | disposition home or self-care (01) | DRG 201 ==
LOC: ED 19:07 → MS3 19:50
PROVIDERS: Admitting Provider Family Medicine; Emergency Provider Emergency Medicine; Visit Provider Internal Medicine
DX: J93.83 Other pneumothorax (principal); F17.210 Nicotine dependence, cigarettes, uncomplicated
CPT/HCPCS: 36415; 71045; 80048; 84484; 85025; 85379; 85652; 86140; 93005; 99285; J7030; A4216; J2405

== ENCOUNTER 2022-05-02 16:50 | Emergency (ER) | payer SELFPAY ==
[2022-05-02 16:52] VITALS: BP 110/66; PULSE 57; RESP 16; TEMP 36.4; BMI 28.4
[2022-05-02 17:01] VITALS: O2SAT 97
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
[2022-05-02] MEDS: Ondansetron 4 MG/2 ML Vial IV (17:41)
--- NOTE | 2022-05-02 17:41 | CM.ED ---
SW Note Referral Source: Case Find Referral Reason: No Primary Care Physician (PCP) SW reviewed chart and noted that patient has no PCP. SW provided patient with list of [facility] and [facility] Physician List for reference. SW also provided patient with Self Pay resources. No other issues or concerns voiced at this time. SW remains available for any additional needs. Plan: Provided patient with PCP information Tova DILLON
--- NOTE | 2022-05-02 17:53 | NURSING ---
PT IS INITIALLY ALERT AND ORIENTED. DURING CARE PT BECAME INCREASINGLY LETHARGIC BUT STILL RESPONDS TO VOICE AND REMAINS ORIENTED AT THIS TIME.
[2022-05-02 17:58] VITALS: BP 100/59; PULSE 68; RESP 15; O2SAT 96
[2022-05-02 18:21] VITALS: O2SAT 89
[2022-05-02 18:22] VITALS: O2SAT 94
--- NOTE | 2022-05-02 18:33 | ED.RN ---
lab present to obtain bloodwork. iv doesnt draw. several attempts by ed nursing staff
[2022-05-02] MEDS: Diphth,Pertuss(Acell),Tet Vac 0.5 ML Vial IM (19:15)
--- NOTE | 2022-05-02 19:45 | NURSING ---
CALLED PHYSICIANS AT 710PM WITH A TRAUMA TRANSFER. THEY GAVE AN ETA 4-5 HRS. URIAH MAHMOOD, MIGUEL A LANGSTON, AND LUCIANO ALL DECLINED DUE TO THEIR HIGH VOLUME AND NO AVAILABLE CREWS. CHARGE NURSE CALLED AND REQUESTED DANCER OR CHOREOGRAPHER AND ETA BECAME 30 MIN.
[2022-05-02 19:49] VITALS: BP 126/74; PULSE 67; RESP 17; TEMP 36.7; O2SAT 97
== END 2022-05-02 20:30 | disposition short-term general hospital (02) ==
PROVIDERS: Emergency Provider Emergency Medicine; Visit Provider Emergency Medicine
DX: S02.609A Fracture of mandible, unspecified, initial encounter for closed fracture (principal); F17.210 Nicotine dependence, cigarettes, uncomplicated; Z23 Encounter for immunization; V89.0XXA Person injured in unspecified motor-vehicle accident, nontraffic, initial encounter; Y92.410 Unspecified street and highway as the place of occurrence of the external cause
CPT/HCPCS: 70450; 70486; 71260; 72125; 74177; 90715; 93005; 96372; 96374; 99285; Q9967; A4216; J2405

== ENCOUNTER 2025-06-06 17:14 | Emergency (ER) | payer SELFPAY ==
[2025-06-06 17:15] VITALS: BP 122/59; PULSE 69; RESP 18; TEMP 36.8; O2SAT 98
[2025-06-06 22:32] VITALS: BP 110/80; PULSE 67; RESP 14; O2SAT 98
--- NOTE | 2025-06-06 22:35 | EDS_ITS ---
HPI History of Present Illness Chief Complaint: Other, Pain/Inj Informant: patient Narrative Narrative: Patient is a 39-year-old male who reports a past medical history of smoking but otherwise no significant past medical problems. He states roughly 1 week ago he worked and then after work went home and went to bed. When he awoke he noticed pain in the left buttocks region that radiated down the back of his leg. He states that there was no trauma or increased activity at work. He states it has been no recent procedures or injections. He denies any loss of bowel or bladder control or IV drug use. He states that he has been taking [id number] medi cation but despite this pain has persisted and he has difficulty ambulating secondary to the pain. As it has not improved over the past week he presents for evaluation. [facility] Medical History Pericarditis Smoker Home Medications ?Medication ?Instructions ?Recorded ?Last Taken ?Type methocarbamol 500 mg tablet 1,000 mg (2 x 500 mg) PO 4 X/DAY 06/06/25 Unknown Rx PRN Muscle pain/spasm #56 tabs oxycodone-acetaminophen 5 mg-325 1 tab PO Q6H PRN pain 5 days #20 06/06/25 Unknown Rx mg tablet (Percocet) tabs prednisone 20 mg tablet 40 mg (2 x 20 mg) PO DAILY 7 days 06/06/25 Unknown Rx #14 tabs Allergy/AdvReac Type Severity Reaction Status Date / Time No Known Allergies Allergy Verified 06/06/25 17:17 Family History Other Diabetes Hypertension Social History Smoking Status: Current every day smoker tobacco type: cigarettes ROS ROS ED Constitutional Constitutional ED: Denies chills or fever(s) Cardiovascular Cardiovascular: Denies chest pain Respiratory/Chest Respiratory/Chest: Denies cough or dyspnea Gastrointestinal Gastrointestinal: Denies abdominal pain, diarrhea, nausea or vomiting Genitourinary Genitourinary ED: Denies dysuria, hematuria or urinary frequency Musculoskeletal Musculoskeletal: Reports other Details: Positive left buttock/leg pain ; Denies back pain Integumentary Denies Abrasions or rash Neurologic Neurologic: Reports paresthesias; Denies headache(s) Hematologic/Lymphatic Hematologic/Lymphatic: Denies easy bleeding or easy bruising EXAM Physical Exam Const Vital Signs: 06/06/25 17:15 06/06/25 22:32 06/06/25 22:32 Temperature 98.3 F Temperature Source Oral Pulse Rate 69 67 Respiratory Rate 18 14 Respiratory Effort Normal Respiratory Pattern Normal Blood Pressure 122/59 H 110/80 Blood Pressure Mean 80 90 Pulse Ox 98 98 Oxygen Delivery Method Room Air Room Air 06/06/25 22:53 Temperature 98.3 F Temperature Source Pulse Rate 73 Respiratory Rate 14 Respiratory Effort Respiratory Pattern Blood Pressure 110/80 Blood Pressure Mean 90 Pulse Ox 98 Oxygen Delivery Method Positive well nourished and well developed General Appearance ED: well developed; Negative for pallor HEENT HEENT Narrative: Normocephalic atraumatic Eyes PERRL and EOMs intact bilaterally General Eye ED: Negative for scleral icterus Neck supple Resp normal respiratory effort and clear to auscultation bilaterally Cardio regular rate and regular rhythm Back/Spine Back/Spine Narrative: No bony deformity or step-off of the thoracic or lumbar spine; no midline tenderness to palpation No obvious spasm or pain with palpation of the bilateral paralumbar region Minimal pain with palpation over top the left piriformis muscle No saddle anesthesia. No clonus or Babinski. Positive straight leg raise on the left at approximately 60 degrees. Patellar reflexes are plus 3 out of 4 bilaterally. No overlying soft tissue changes to suggest trauma or infection. Extremity normal to inspection Extremity Narrative: No asymmetric edema no pitting edema negative Homans' sign bilaterally Bilateral lower extremities are neurovascularly intact No sign of long bone injury such as bony deformity or joint effusion All compartments are soft and compressible going against compartment syndrome Neuro oriented x3, CN's II-XII intact bilaterally and no sensory deficits noted Sensorium / Orientation: alert Psych mental status grossly normal Skin no rashes or lesions noted and no wounds General Skin Exam: Negative for jaundice or pallor MDM MDM MDM Narrative Medical decision making narrative: Patient arrived to the ER with stable vitals. He reported 1 week of left-sided leg pain without trauma. He denied any loss of bowel or bladder control or IV drug use going against cauda equina or epidural abscess. There is been no report of recent injections or back procedures going against discitis or osteomyelitis. He does not have flank pain nor did he report hematuria or dysuria going against UTI kidney stone or pyelonephritis. History and exam is concerning for lumbar radiculopathy. We discussed potential CT scan to assess for this. However this is not the study of choice and even if it did show changes consistent/concerning for nervous compression it would not alter his plan of care as he is neurovascularly intact without signs of infection. Therefore we elected to simply treat the patient with steroid muscle relaxers and pain medication and he will follow-up with orthopedic spine surgery for further evaluation. History & Record Review Discussion w/independent historian: Patient Discharge Plan Triage Chief Complaint: Other, Pain/Inj ED Provider: Justino Santos Dx/Rx/DC Orders Clinical Impression: Acute left lumbar radiculopathy, Tobacco use Instructions: Understanding Lumbar Radiculopathy Prescriptions: New methocarbamol 500 mg tablet 1,000 mg PO 4X/DAY PRN (Reason: Muscle pain/spasm) Qty: 56 1RF prednisone 20 mg tablet 40 mg PO DAILY 7 Days Qty: 14 0RF oxycodone-acetaminophen [Percocet] 5-325 mg tablet 1 tab PO Q6H PRN (Reason: pain) 5 Days Qty: 20 0RF Primary Care Provider: Care Physician,No Primary Referrals: Antony Morrow MD [Med Staff - Active Staff, Orthopedics] Referral Note: Lumbar radiculopathy Care Physician,No Primary [Primary Care Provider, Medical] Activity Restrictions/Additional Instructions: Please continue to stretch and heat your back/buttocks to help reduce pain and speed healing. Take the prescribed medications as directed for symptom relief. Follow-up with orthopedics for repeat evaluation and to discuss need for MRI. Return to the ER should you have any further concerns Print Language: Thai Disposition Disposition: Home, Self Care Discharge Date/Time: 06/06/25 22:54
[2025-06-06 22:53] VITALS: BP 110/80; PULSE 73; RESP 14; TEMP 36.8; O2SAT 98
== END 2025-06-06 22:54 | disposition home or self-care (01) ==
PROVIDERS: Emergency Provider Emergency Medicine; Visit Provider Emergency Medicine
DX: M54.16 Radiculopathy, lumbar region (principal); F17.210 Nicotine dependence, cigarettes, uncomplicated
CPT/HCPCS: 96372; 99282

== ENCOUNTER → 2025-07-18 | Outpatient (CLI) | payer SELFPAY ==
--- NOTE | 2025-07-18 15:29 | MRI_ITS ---
PROCEDURE: SPINE LUMBAR (ROUTINE) 07/18/2025 REASON FOR EXAM: PAIN X4-6 MON, LEFT RADICULOPATHY TECHNIQUE: Procedure Code: MRISPL Modality: MR Procedure: SPINE LUMBAR (ROUTINE) COMPARISON: Radiographs dated 07/04/2025. FINDINGS: No acute fracture or subluxation. Minimal disc narrowing is noted at L4-5. The bone marrow signal is unremarkable. The conus medullaris appears unremarkable and terminates at the level of L1. L1-2: Unremarkable. L2-3: Unremarkable. L3-4: A minimal posterior disc bulge and posterior epidural fat results in mild narrowing of the thecal sac to 9 mm (AP). No significant neural foraminal narrowing. L4-5: A broad-based 7 mm posterior disc protrusion results in severe narrowing of the thecal sac to 3 mm (AP), displacement of the nerve roots posterior within the thecal sac, narrowing of the bilateral anterolateral recesses, and mild right and minimal left neural foraminal narrowing. L5-S1: Unremarkable. MRI/Spine Lumbar (Routine) IMPRESSION: A 7 mm posterior disc protrusion at L4-5 severely narrows the thecal sac, displ acing the nerve roots posteriorly, narrowing of the bilateral anterolateral recesses, and resulting in mild right and minimal l eft neural foraminal narrowing. Reading Location: [id number]
== END | disposition home or self-care (01) ==
LOC: MRI 15:25
PROVIDERS: Referring Provider Student in an Organized Health Care Education/Training Program; Visit Provider Student in an Organized Health Care Education/Training Program
DX: M54.16 Radiculopathy, lumbar region (principal)
CPT/HCPCS: 72148